=== PATIENT | male | born 1975 | race Two or more races ===

== ENCOUNTER 2024-07-12 10:15 | Day surgery (SDC) | payer MEDICAID, SELFPAY ==
--- NOTE | 2024-07-09 06:23 | EKG_ITS ---
[facility] Test Date: 2024-07-09 Pat Name: RADHA STAFFORD Department: Room: - Gender: Male Category Specialist: [facility] : 1975 Requested By: Mani Hernández Order Number: [id number] Reading MD: Mani Hernández Measurements Intervals Alpha Rate: 63 P: 39 MO: 160 QRS: 30 QRSD: 87 T: 27 QT: 390 QTc: 401 Interpretive Statements SINUS RHYTHM No previous ECG available for comparison /store/S0/[id number]
[2024-07-09 08:02] VITALS: BMI 40.3
[2024-07-09 10:39] LABS: Collection Type, Urine Clean Catch
[2024-07-09 11:36] LABS: Basophils % (Auto) 1 % (0-2.5); Eosinophils # (Auto) 0.2 Thou/mm3 (0.0-0.5); Eosinophils % (Auto) 2 % (0-10); Hematocrit 45.7 % (41.0-53.0); Hemoglobin 15.7 g/dL (13.5-16.0); Immature Granulocytes % (Auto) 1 % (0-0); Immature Granulocytes Auto 0.06 Thou/mm3 (0.00-0.00); Lymphocytes # (Auto) 2.7 Thou/mm3 (1.0-4.8); Lymphocytes % (Auto) 32 % (10-50); Mean Corpuscular HGB Conc 34.4 g/dl (31.0-37.0); Mean Corpuscular Hemoglobin 29.5 pg (25.0-35.0); Mean Corpuscular Volume 86 fL (80-100); Monocytes # (Auto) 0.5 Thou/mm3 (0.0-0.8); Monocytes % (Auto) 6 % (0-12); Neutrophils # (Auto) 4.8 Thou/mm3 (1.8-7.7); Neutrophils % (Auto) 58 % (37-80); Nucleated Red Blood Cell % 0 /100 WBC (0); Platelet Count 219 Thou/mm3 (140-440); RDW Standard Deviation 40.7 fL (35.1-43.9); Red Blood Count 5.32 Miln/mm3 (4.50-5.90); White Blood Count 8.3 Thou/mm3 (3.8-10.6)
[2024-07-09 11:43] LABS: Bilirubin,Urine Negative (Negative); Blood,Urine Negative (Negative); Calcium Oxalate Crystals,Urine 1+; Clarity,Urine Clear (Clear/Hazy); Color,Urine Yellow (Lt Yel-Yel); Glucose, Urine Negative (Negative); Ketones,Urine Negative (Negative); Leukocyte Esterase,Urine Negative (Negative); Nitrite,Urine Negative (Negative); Protein,Urine Negative (Neg - Trace); RBC,Urine 8 /hpf (0-3); Specific Gravity,Urine 1.029 (1.001-1.035); Squamous Epithelial Cell,Urine < 1 /hpf (0-5); Urobilinogen,Urine Negative mg/dL (0.0-1.0); WBC,Urine 3 /hpf (0-5)
[2024-07-09 11:49] LABS: Alanine Aminotransferase 21 U/L (10-49); Albumin, Serum 4.2 gm/dL (3.5-5.0); Albumin/Globulin Ratio 1.6 (1.2-2.2); Alkaline Phosphatase 73 U/L (46-116); Anion Gap 6 (7-16); Aspartate Amino Transferase 20 U/L (0-34); BUN/Creatinine Ratio 25 Ratio (12-20); Bilirubin,Total 0.6 mg/dL (0.3-1.2); Blood Urea Nitrogen 20 mg/dL (9-23); Calcium 9.6 mg/dL (8.3-10.6); Calcium (Corrected) 9.6 mg/dL (8.5-10.1); Carbon Dioxide 28.8 mMol/L (20.0-31.0); Chloride 108 mMol/L (98-107); Creatinine (Component) 0.8 mg/dL (0.6-1.3); Estimated Creatinine Clearance 136.4 mL/min (>60); Globulin 2.7 gm/dL (2.3-3.5); Glucose 109 mg/dL (74-106); Osmolality,Calculated 288 (275-295); Potassium 4.3 mMol/L (3.4-5.1); Sodium 143 mMol/L (136-145); Total Protein 6.9 gm/dL (5.7-8.2); eGFR > 60 See Note
[2024-07-09 12:17] LABS: Partial Thromboplastin Time 26.8 Seconds (22.0-36.0)
--- NOTE | 2024-07-12 10:44 | SUR.PREOP ---
Patient expressed gratitude for prayer before their procedure.
[2024-07-12 11:16] VITALS: BP 138/85; PULSE 74; RESP 12; TEMP 36.8; O2SAT 98; BMI 40.2
[2024-07-12] MEDS: RINGERS LACTATED 1000 ML 1,000 ML 60 ML IV (11:38)
[2024-07-12 14:20] VITALS: BP 123/77; PULSE 74; RESP 12; TEMP 37.3; O2SAT 98
--- NOTE | 2024-07-12 14:20 | SUR.PHASEII ---
pt received to pacu bay 7. pt is alert and oriented denies pain and nausea. vss. breathing even and unlabored. dressing to left shoulder cdi with fluffs and medipore tape. report from negro andres and nurse barboza
[2024-07-12 14:25] VITALS: BP 130/79; PULSE 80; RESP 21; TEMP 37; O2SAT 95
[2024-07-12 14:30] VITALS: BP 126/78; PULSE 75; RESP 16; TEMP 37.1; O2SAT 98
--- NOTE | 2024-07-12 14:31 | ESOP_ITS ---
Date of Procedure 07/12/24 Pre Op Diagnosis Large lipoma left posterior neck Post Op Diagnosis Same. Procedure Excision of large lipoma left posterior neck. On July 12, 2024 Findings This patient has a large lipoma measuring about 10 cm x 7 cm. It is extending below the fascia and the trapezius muscle. This lipoma had multiple extensions the all needed to be removed. Procedure Description This patient was interviewed in the preop area and the procedure was discussed with the patient in detail. The site was marked. Patient will undergo excision of the left neck lipoma. The risk benefits alternatives were discussed with the patient and informed consent is obtained. The patient is taken to the operating room and MAC anesthetic is given to the patient. Patient is positioned in the [id number] lateral position on the beanbag. Timeout procedure is carried out. The antiembolism measures are taken. The neck shoulder chest wall regions prepped and draped in usual manner. Local anesthesia 0.5% Marcaine with epinephrine is used and a wide field block is achieved. IV propofol Versed and fentanyl was given by the anesthesiologist. Longitudinal incision is made over the most prominent area of the mass. This is deepened through the skin subtenons tissue and fascia. The lipoma is identified and is dissected free from surrounding tissue. After removal of the lipoma hemostasis is achieved. The fascia is approximated by 2-0 Vicryl interrupted sutures subtenons tissue by 3-0 Vicryl interrupted sutures and skin by 2-0 nylon interrupted sutures. Estimated loss of blood less than 10 cc. Sterile dressing is applied. Complications none. Anesthesia MAC and local (Marcaine 0.5% with epinephrine 60 cc.) Pathology / specimen Other (Lipoma left neck.) Estimated Blood Loss 10 Condition Stable Disposition PACU Surgeon Mani Hernández MD Surgical Staff Operation Date: 07/12/24 12:15 Case Staff Anesthesiologist: Lambert Bran RN First Assistant: Yessi Lopez RN director of product marketing traveler. Dion clinical technologist.
[2024-07-12 14:35] VITALS: BP 121/85; PULSE 77; RESP 17; TEMP 37.2; O2SAT 97
[2024-07-12 14:50] VITALS: BP 127/74; PULSE 70; RESP 17; TEMP 37.2; O2SAT 98
--- NOTE | 2024-07-12 14:50 | SUR.PHASEII ---
pt discharged with all belongings. vss. breathing even and unlabored. denies pain and nausea. dressing remains cdi. iv removed intact. dc instructions gone over with patient and wive. both verbalize understanding. signed by .
== END 2024-07-12 14:50 | disposition home or self-care (01) ==
PROVIDERS: PCP Nurse Practitioner Family; Referring Provider Specialist; Visit Provider Specialist
PROC: (CPT 21554; principal; 2024-07-12 12:00)
DX: D17.0 Benign lipomatous neoplasm of skin and subcutaneous tissue of head, face and neck (principal); Z01.810 Encounter for preprocedural cardiovascular examination
CPT/HCPCS: 21554; 36415; 80053; 81001; 85025; 85730; 93005; A4217; A4649; J0131; J2250; J2704; J3010; J3490; J7120; J0665